=== PATIENT | female | born 1990 | race Caucasian/White ===

== ENCOUNTER 2019-02-20 17:08 | Emergency (ER) | payer OTHER ==
[2019-02-20] MEDS ORDERED: ACETAMINOPHEN 325 MG TABLET PO ONE (17:22)
--- NOTE | 2019-02-20 17:30 | ED Physician Documentation ---
General Adult - HISTORIAN Historian: patient - HPI Stated Complaint: blood pressure check Chief Complaint: General Adult (Blood pressure check) Additional Information: Patient is a 28-year-old female who is 38 weeks gestation that presents to the ER with a headache and wanting blood pressure checked. She denies any shortness of breath or chest pain. She states she just saw OB and everything looks good. She initially just wanted a blood pressure check but was ok with checking in. She denies any abdominal pain or vaginal leakage. She is very pleasant. Onset: hours Timing: still present, better Severity: mild Modifying Factors: - ROS CONST: no problems EYES/ENT: none CVS/RESP: none GI/: none MS/SKIN/LYMPH: none NEURO/PSYCH: headache. denies: dizziness, difficulty walking - PAST HX Past History: other (Grav. 2 Para 1) Other History: none Surgeries/Procedures: none Allergies/Adverse Reactions: Allergies Allergy/AdvReac Type Severity Reaction Status Date / Time No Known Allergies Allergy Verified 02/20/19 17:23 - SOCIAL HX Smoking History: non-smoker Alcohol Use: none Drug Use: none - FAMILY HX Family History: No - VITAL SIGNS Vital Signs: Vital Signs Temp Pulse Resp BP Pulse Ox 98.2 F 93 H 19 155/87 99 02/20/19 17:17 02/20/19 17:17 02/20/19 17:17 02/20/19 17:17 02/20/19 17:17 - REVIEWED ASSESSMENTS Nursing Assessment Reviewed: Yes Vitals Reviewed: Yes ED Results Lab/Radiology - Orders Orders: ED Orders Category Date Time Status Acetaminophen [Tylenol] Med 02/20/19 17:22 Once 650 mg PO NOW ONE General Adult Physical Exam - PHYSICAL EXAM GENERAL APPEARANCE: no distress EENT: eye inspection normal, ENT inspection normal, pharynx normal, NENO NECK: normal inspection RESPIRATORY: breath sounds normal CVS: heart sounds normal, equal pulses ABDOMEN: normal bowel sounds, distended () BACK: normal inspection SKIN: warm/dry, normal color EXTREMITIES: non-tender, normal range of motion, edema (generalized) NEURO: oriented X3, CN's nml as tested, motor nml, sensation nml, mood/affect nml, cognition normal Discharge Clincal Impression: 38 weeks gestation of Referrals: Primary Doctor,No [Primary Care Provider] - 2 Days Additional Instructions: Monitor Sodium Intake Elevate legs as needed Tylenol for headache Heating pad to neck and shoulders Light massage to neck and shoulders for tension Follow up with OB this week for re-evaluation Condition: Good Disposition: 01 HOME, SELF-CARE Decision to Admit: NO Decision Time: 17:30
[2019-02-20 17:33] VITALS: BP 139/99
== END 2019-02-20 17:34 | disposition home or self-care (01) ==
LOC: ED 17:08
DX: Z01.30 Encounter for examination of blood pressure without abnormal findings (principal); Z33.1 Pregnant state, incidental; Z3A.38 38 weeks gestation of pregnancy
CPT/HCPCS: 99281; 99282